=== PATIENT | female | born 1975 | race Caucasian/White ===

== ENCOUNTER 2022-09-06 01:47 | Observation (INO) ==
[2022-09-06 05:21] LABS: Activated Partial Thrombo Time 31.3 Seconds (26.0-36.0); Basophils % 0.4 %; Eosinophils # 0.3 K/mcL (0.0-0.6); Eosinophils % 3.1 %; Hematocrit 40.5 % (35.3-44.9); Hemoglobin 13.9 g/dL (11.5-15.4); Immature Granulocytes % 0.2 % (0-4); Lymphocytes # 2.4 K/mcL (0.6-4.6); Lymphocytes % 24.7 %; Mean Corpuscular HGB Conc 34.3 g/dL (31.6-35.5); Mean Corpuscular Hemoglobin 30.4 pg (28.0-33.3); Mean Corpuscular Volume 88.6 fL (83.0-100.0); Mean Platelet Volume 9.9 fL (9.4-12.4); Monocytes # 0.6 K/mcL (0.0-1.3); Monocytes % 6.3 %; Neutrophils # 6.4 K/mcL (1.6-8.9); Platelet Count 330 K/mcL (140-400); Prothrombin Time 10.8 Seconds (9.4-12.1); Red Blood Count 4.57 M/mcL (3.82-4.97); Red Cell Distribution Width 11.6 % (11.5-14.5); Segmented Neutrophils % 65.3 %; White Blood Count 9.8 K/mcL (4.3-11.1)
[2022-09-06 07:09] LABS: BUN/Creatinine Ratio 18 (6-26); Blood Urea Nitrogen 10 mg/dL (6-20); Calcium 9.6 mg/dL (8.6-10.3); Carbon Dioxide 23 mEq/L (23-29); Chloride 104 mEq/L (98-107); Glucose 152 mg/dL (70-105); Osmolality,Calculated 284 (280-300); Potassium 3.6 mEq/L (3.5-5.1); Sodium 136 mEq/L (136-145)
[2022-09-06] MEDS ORDERED: Morphine Sulfate 2 MG/ML SYRINGE IVP ONE (07:12)
[2022-09-06] MEDS ORDERED: Naloxone 0.4 MG/ML INJ IVP PRN (07:18)
[2022-09-06] MEDS ORDERED: Morphine Sulfate 2 MG/ML SYRINGE IVP PRN (07:20)
[2022-09-06] MEDS ORDERED: Nitroglycerin 0.4 MG TAB.SUBL SL PRN (07:20)
[2022-09-06 09:59] LABS: C-Reactive Protein < 5 mg/L (Less than 10); Troponin I < 0.03 ng/mL (< 0.04)
[2022-09-06 10:01] LABS: Chol/HDL Ratio 3.7 (0-4.9)
[2022-09-06] MEDS ORDERED: Albuterol 2.5 MG/3 ML NEBULIZER IH PRN (14:30)
[2022-09-06] MEDS ORDERED: Nicotine 2 MG GUM BC PRN (15:09)
[2022-09-06] MEDS: Nicotine 21 MG PATCH.TD24 TD SCH (16:17)
[2022-09-07 03:05] LABS: BUN/Creatinine Ratio 21 (6-26); Blood Urea Nitrogen 12 mg/dL (6-20); Calcium 9.6 mg/dL (8.6-10.3); Carbon Dioxide 29 mEq/L (23-29); Chloride 103 mEq/L (98-107); Glucose 96 mg/dL (70-105); Magnesium 1.8 mg/dL (1.6-2.6); Osmolality,Calculated 286 (280-300); Sodium 138 mEq/L (136-145)
[2022-09-07] MEDS ORDERED: *HR* Enoxaparin 40 MG/0.4 ML SYRINGE SQ SCH (06:00)
[2022-09-07] MEDS ORDERED: Regadenoson 0.4 MG/5 ML SYRINGE IVP ONE (06:08)
[2022-09-07] MEDS ORDERED: Cholecalciferol (D-3) 1,000 UNIT (25MCG) TABLET PO SCH (09:00)
[2022-09-07] MEDS ORDERED: Aspirin 81 MG TAB.CHEW PO SCH (09:00)
[2022-09-07] MEDS ORDERED: Cyanocobalamin (B-12) 1,000 MCG TABLET PO SCH (09:00)
[2022-09-07 10:21] VITALS: BP 120/80; PULSE 71; TEMP 97.9; O2SAT 92
[2022-09-07] MEDS: Nicotine 21 MG PATCH.TD24 TD SCH (10:33)
== END 2022-09-07 12:34 | disposition home or self-care (01) ==
LOC: EMEROOARM 01:47 → 3BNU 01:47 → SUATTDRO 07:36 → 3BNU 08:40
PROVIDERS: ADMIT Internal Medicine; ATTEND Internal Medicine